=== PATIENT | male | born 1940 | race Caucasian/White ===

== ENCOUNTER → 2021-02-15 14:37 | Outpatient (BNVA) | payer MEDICARE, SELFPAY | PROVIDERS: Visit Provider Urology | DX: C61 Malignant neoplasm of prostate (principal); N40.1 Benign prostatic hyperplasia with lower urinary tract symptoms; N13.8 Other obstructive and reflux uropathy; R97.20 Elevated prostate specific antigen [PSA] | CPT/HCPCS: Q3014 ==

== ENCOUNTER → 2021-08-15 14:14 | Outpatient (BNVA) | payer MEDICARE, SELFPAY | PROVIDERS: Visit Provider Urology | DX: C61 Malignant neoplasm of prostate (principal) | CPT/HCPCS: Q3014 ==

== ENCOUNTER → 2022-05-03 14:53 | Outpatient (BNVA) | payer MEDICARE, SELFPAY | PROVIDERS: Visit Provider Urology | DX: N40.0 Benign prostatic hyperplasia without lower urinary tract symptoms (principal); C61 Malignant neoplasm of prostate; R97.20 Elevated prostate specific antigen [PSA] | CPT/HCPCS: Q3014 ==

== ENCOUNTER → 2022-05-08 12:48 | Outpatient (BNVA) | payer MEDICARE, SELFPAY | PROVIDERS: Visit Provider Urology | DX: C61 Malignant neoplasm of prostate (principal) | CPT/HCPCS: 96402; J9217 ==

== ENCOUNTER → 2022-08-01 14:18 | Outpatient (BNVA) | payer MEDICARE, SELFPAY | PROVIDERS: Visit Provider Urology | DX: C61 Malignant neoplasm of prostate (principal); N40.1 Benign prostatic hyperplasia with lower urinary tract symptoms; N13.8 Other obstructive and reflux uropathy; R97.20 Elevated prostate specific antigen [PSA] | CPT/HCPCS: Q3014 ==

== ENCOUNTER 2022-11-07 14:39 | Outpatient (AMB) | payer MEDICARE, SELFPAY ==
--- NOTE | 2022-11-07 16:34 | MHC.OFFVIS ---
Intake Intake Visit Reasons: 3M PSA/Testo(set) Allergies No Known Allergies Allergy (Verified 08/01/22 14:35) HPI HPI Comments History of Present Illness Details Trevor RUIZ is a very pleasant male. He is a patient of Dr Rosario. They are seen in the office today for the following urologic conditions. - prostate cancer - rising PSA Telemedicine Evaluation 15 min Consultation [employer] Ad[employer] Video attempted PSA well controlled up to single GnRH injection Repeat labs in 3 months Minimal symptoms Use telephone number [phone] 07/12 PSA 1.5 GnRH 05/14, 11/11 ).8 T9 Prostate cancer:? Low-grade, longstanding active surveillance ?Threshold for starting hormones has been crossed. Discussed with patient. Can hold off for 4 months and repeat PSA. Target for starting hormones is between 5 and 10 ? Prostate cancer was diagnosed?many years ago with Dr Meyer.? Diagnosis was reached by?needle biopsy ?Repeated [address] Morel ? The [place] grade is?3+3 = 6.? TNM Classification of Malignant Tumours (TNM)?T1c.? The [place] (NCCN) risk category is?Low Risk (PSA< 10, Gl < 7, T1c).? Initial therapy included?Primary treatment, Deferred Therapy (active surveillance).? Recent labs included?a PSA (prostate-specific antigen) ?09/06 8.8, 03/09 3.6, 0.6, 09/07 4.9 16.3%, 02/07 4.8 ?08/09 5.8 20%, 11/09 5.8 13%, 07/11 7.1, 05/14 10.2, 11/11 0.8 T 9 ? Therapeutic plan:?4m f/u labs PFSH Medical History Benign prostatic hyperplasia without lower urinary tract symptoms Elevated prostate specific antigen [PSA] Malignant neoplasm of prostate Review of Systems Const All systems reviewed & are unremarkable except as noted in HPI and below Reports no additional complaints Resp Reports no additional complaints GI Reports no additional complaints Reports as per HPI Musc Reports no additional complaints Physical Exam Telemedicine evaluation Appropriate responses Regular breathing rate and rhythm HEENT Head: Yes normal to inspection Ears: hearing grossly normal bilaterally Eyes General: appearance normal, both eyes and all related structures Neck Neck: Yes normal visual inspection Chest Chest palpation & inspection: normal inspection of the chest Resp Effort & Inspection: normal respiratory effort and able to speak in complete sentences Assessment & Plan Assessment & Plan (1) Malignant neoplasm of prostate: Code(s): C61 - Malignant neoplasm of prostate Plan Four month follow-up lab work Orders: Orders Prostate Specific Antigen 4 Months C61 - Malignant neoplasm of prostate Testosterone, Total 4 Months C61 - Malignant neoplasm of prostate Patient Instructions: Imaging studies, laboratory and physical exam results were discussed and reviewed in detail. No major barriers to patient understanding were identified. An opportunity to ask questions regarding the treatment plan was provided. All questions were answered. The patient expressed understanding and agreement with the above treatment plan. The patient is aware they should contact our office by phone for worsening of their current condition or the appearance of new urologic symptoms. Compliance is encouraged with any medications and followup testing that is ordered. It is a privilege to participate in the urologic care of your patient. If you have any questions or concerns regarding treatment for the above conditions, or other urologic issues, please do not hesitate to contact me. The office telephone contact is [phone]. This note is constructed using voice recognition software. While every effort has been made to ensure accuracy record label internship errors may have been included. Yours sincerely, Dr Ty Rankin MD, [facility] - Urology Providers of Expert, Compassionate Care for the Genitourinary System Telehealth Telehealth Location of provider rendering services: practice address Location of patient: address on file Patient Identification confirmed using: Name, : Yes Telehealth method: video Patient verbally consented to treatment: Yes Patient verbally consented to billing insurance company: Yes Patient informed of any privacy concerns related to visit: Yes Coding Level of Care Code Tele Est Pt Level 3 (04273) Diagnoses Malignant neoplasm of prostate C61
== END 2022-11-07 16:38 | disposition home or self-care (01) ==
LOC: HO.HUSH 14:39
PROVIDERS: Visit Provider Urology
DX: C61 Malignant neoplasm of prostate (principal)
CPT/HCPCS: 99213

== ENCOUNTER → 2022-11-07 14:39 | Outpatient (BNVA) | payer MEDICARE, SELFPAY | PROVIDERS: Visit Provider Urology | DX: C61 Malignant neoplasm of prostate (principal) | CPT/HCPCS: Q3014 ==

== ENCOUNTER 2023-03-05 13:25 | Outpatient (AMB) | payer MEDICARE, SELFPAY ==
--- NOTE | 2023-03-05 14:09 | A.OFFVIS_ITS ---
Intake Intake Visit Reasons: 4m Testosterone(set) Allergies No Known Allergies Allergy (Verified 03/05/23 13:24) Medication List - Last Reconciled 03/05/23 by Ty Rankin MD atenolol 25 mg PO DAILY donepezil 10 mg PO DAILY gabapentin 100 mg PO DAILY hydrochlorothiazide 12.5 mg PO DAILY simvastatin 20 mg PO BEDTIME HPI HPI Comments History of Present Illness Details Trevor RUIZ is a very pleasant male. He is a patient of Dr Rosario. They are seen in the office today for the following urologic conditions. - prostate cancer - rising PSA Telemedicine Evaluation 15 min Consultation [employer] Adrienne Video attempted PSA remains well controlled up to single GnRH injection Repeat labs in 3 months Minimal symptoms Use telephone number [phone] 07/12 PSA 1.5 GnRH 05/14, 11/11 0.8 T9, T 36 Prostate cancer:? Low-grade, longstanding active surveillance ?Threshold for starting hormones has been crossed. Discussed with patient. Can hold off for 4 months and repeat PSA. Target for starting hormones is between 5 and 10 ? Prostate cancer was diagnosed?many years ago with Dr Meyer.? Diagnosis was reached by?needle biopsy ?Repeated [address] Morel ? The [place] grade is?3+3 = 6.? TNM Classification of Malignant Tumours (TNM)?T1c.? The [place] (NCCN) risk category is?Low Risk (PSA< 10, Gl < 7, T1c).? Initial therapy included?Primary treatment, Deferred Therapy (active surveillance).? Recent labs included?a PSA (prostate-specific antigen) ?09/06 8.8, 03/09 3.6, 0.6, 09/07 4.9 16.3%, 02/07 4.8, 08/09 5.8 20%, 11/09 5.8 13%, 07/11 7.1, 05/14 10.2, 11/11 0.8 T 9, 03/14 T 36, ? Therapeutic plan:?4m f/u labs PFSH Medical History Benign prostatic hyperplasia without lower urinary tract symptoms Elevated prostate specific antigen [PSA] Malignant neoplasm of prostate Review of Systems Const All systems reviewed & are unremarkable except as noted in HPI and below Reports no additional complaints Resp Reports no additional complaints GI Reports no additional complaints Reports as per HPI Musc Reports no additional complaints Physical Exam Telemedicine evaluation Appropriate responses Regular breathing rate and rhythm HEENT Head: Yes normal to inspection Ears: hearing grossly normal bilaterally Eyes General: appearance normal, both eyes and all related structures Neck Neck: Yes normal visual inspection Chest Chest palpation & inspection: normal inspection of the chest Resp Effort & Inspection: normal respiratory effort and able to speak in complete sentences Assessment & Plan Assessment & Plan (1) Benign prostatic hyperplasia without lower urinary tract symptoms: Code(s): N40.0 - Benign prostatic hyperplasia without lower urinary tract symptoms Plan Six month follow-up lab work Orders: Orders PSA,Total (Free>4and<10) 6 Months C61 - Malignant neoplasm of prostate Testosterone, Total 6 Months C61 - Malignant neoplasm of prostate Patient Instructions: Imaging studies, laboratory and physical exam results were discussed and reviewed in detail. No major barriers to patient understanding were identified. An opportunity to ask questions regarding the treatment plan was provided. All questions were answered. The patient expressed understanding and agreement with the above treatment plan. The patient is aware they should contact our office by phone for worsening of their current condition or the appearance of new urologic symptoms. Compliance is encouraged with any medications and followup testing that is ordered. It is a privilege to participate in the urologic care of your patient. If you lozano ve any questions or concerns regarding treatment for the above conditions, or other urologic issues, please do not hesitate to contact me. The office telephone contact is [phone]. This note is constructed using voice recognition software. While every effort has been made to ensure accuracy semiconductor wafers etch operator errors may have been included. Yours sincerely, Dr Ty Rankin MD, [facility] - Urology Providers of Expert, Compassionate Care for the Genitourinary System Telehealth Telehealth Location of provider rendering services: practice address Location of patient: address on file Patient Identification confirmed using: Name, : Yes Telehealth method: voice only Patient verbally consented to treatment: Yes Patient verbally consented to billing insurance company: Yes Patient informed of any privacy concerns related to visit: Yes Coding Level of Care Code Tele Est Pt Level 3 (42090) Diagnoses Benign prostatic hyperplasia without lower urinary tract symptoms N40.0
== END 2023-03-05 14:20 | disposition home or self-care (01) ==
LOC: HO.HUSH 13:25
PROVIDERS: Visit Provider Urology
DX: N40.0 Benign prostatic hyperplasia without lower urinary tract symptoms (principal)
CPT/HCPCS: 99442

== ENCOUNTER → 2023-03-05 13:25 | Outpatient (BNVA) | payer MEDICARE, SELFPAY | PROVIDERS: Visit Provider Urology ==